=== PATIENT | female | born 1995 | race Caucasian/White ===

== ENCOUNTER 2018-10-16 15:50 | Outpatient (CLI) | payer OTHER | END 2018-10-16 16:44 | disposition home or self-care (01) | LOC: D.LDO 15:50 | PROVIDERS: ATTEND Obstetrics & Gynecology | DX: O10.919 Unspecified pre-existing hypertension complicating pregnancy, unspecified trimester (principal); Z3A.00 Weeks of gestation of pregnancy not specified ==

== ENCOUNTER 2018-12-05 06:05 | Inpatient (IN) | payer OTHER ==
[~2018-12-05] VITALS: Ht 170.2 cm; Wt 100.2 kg
[2018-12-05] MEDS ORDERED: PRENAVITE1 TAB PO (07:49)
[2018-12-05 07:54] LABS: HEMATOCRIT 32.7 % (36.0-48.0); HEMOGLOBIN 10.7 g/dL (12-16); MCH 26.5 pg (26.0-34.0); MCHC 32.7 g/dL (31.0-37.0); MCV 80.9 fL (80.0-100.0); MEAN PLATELET VOLUME 10.8 fL (7.4-10.4); RBC 4.04 10x6/uL (4.00-5.40); RDW 14.3 % (11.5-14.5); WBC 10.8 10x3/uL (4.8-10.8)
[2018-12-05 08:10] VITALS: BP 131/84; Ht 170.2 cm; Wt 100.2 kg
[2018-12-05 09:56] LABS: APPEARANCE HAZY (CLEAR); BILIRUBIN NEGATIVE (NEGATIVE); COLOR YELLOW (YELLOW); GLUCOSE NEGATIVE (NEGATIVE); KETONE NEGATIVE (NEGATIVE); NITRITE NEGATIVE (NEGATIVE); PROTEIN NEGATIVE (NEGATIVE); SPECIFIC GRAVITY 1.015 (1.005-1.020); UROBILINOGEN NORMAL (NORMAL)
[2018-12-05 09:57] LABS: BACTERIA FEW /hpf (NONE SEEN); EPITHELIAL CELLS 0-5 /hpf (0-5); RED CELLS - URINE OCC /hpf (0-5); WHITE CELLS - URINE 0-5 /hpf (0-5)
[2018-12-06 07:21] LABS: RAPID PLASMA REAGIN Non Reactive (Non Reactive)
--- NOTE | 2018-12-06 16:00 | NUR ---
REC'D PT BACK FROM RECOVERY POST VAGINAL LACERATION REPAIRS POST VAG DELIVERY. PT AA&O X 4. REPORTS PAIN 10/30. KENNEY RECOVERY NURSE ADMINISTERS DEMEROL AT THIS TIME FOR SHIVERES. SEE RECOVERY NOTES AND EMAR. PT TRANSFERS SELF FROM STRETCHER TO REGULAR BED. POST OP VITALS OBTAINED. SEE FLOWSHEET. BRADLEY CATH REMAINS IN PLACE W/APPROX 700ML NOTED IN BRADLEY BAG. DR LAMBERT O ROOM AT THIS TIME TO INFORM PT THAT SHE WILL HAVE A VAG PACK AND BRADLEY X 6 ADDITION HOURS TO CONTROL BLEEDING. PT'S HAS A PIV TO LEFT WRIST AREA W/NS W/20 UNITS PITOCIN INFUSING AT SLOW RATE VIA GRAVITY. APPROX 200ML REMAINING IN BAG. LINE PLACED ON PUMP TO INFUSE AT 100ML/HR FOR REMAINDER OF BAG. A KATHARINA RN TO ROOM FOR FUNDUS ASSESSMENT AND TO CHANGE PATIENTS GOWN. SEE A KATHARINA RN NOTES. PT RESTING QUIETLY W/EYES CLOSED. RESP EVEN AND UNLABORED. BED LOW, SIDE RAILS UP X 2. CALL LIGHT, PHONE AND REMOTE AT BEDSIDE. PP TREAT BOX AND ICE WATER AT BEDSIDE.
[2018-12-06 16:08] VITALS: BP 123/72
--- NOTE | 2018-12-06 17:00 | NUR ---
PT RESTING WITH EYES CLOSED, RESP EVEN AND UNLABORED, 18/MIN. PT DENIES NAUSEA, SOB OR DIZZINESS. FUNDUS FIRM, U/1, SCANT RUBRA LOCHIA NOTED. PT HAS VAGINAL PACKING IN PLACE. BRADLEY CATH CONTINUES TO DRAIN DARK YELLOW URINE, 100 CC'S NOTED IN UROMETER. NEW PERIPADS PLACED. PT IS DROWSY, BUT AWAKENS WHEN SPOKEN TO. REQUESTS ICE WATER TO DRINK, SERVED. DENIES ALL OTHER NEEDS AT THIS TIME. DENIES NEEDING PAIN MEDICATION, RATING PAIN TO VAGINAL AREA 3/10, DESCRIBES BURNING SENSATION. FAMILY IN ROOM. SRUP X 2, CALL LIGHT AND PHONE WITHIN REACH.
--- NOTE | 2018-12-06 19:17 | NUR ---
INTO ROOM FOR BEDSIDE REPORT. IV INFUSION PUMP NOTED TO BE OFF. Bennie POSADAS RN REMOVED TUVING FROM PUMP AND UNCLAMPED TO INFUSE BUT IV NOT INFUSING. IV REMAINS OFF AT THIS TIME. VISITORS IN ROOM AT PRESENT. PT. STATES SHE HAS SLIGHT DISCOMFORT BUT DOES NOT FEEL THAT SHE NEEDS MEDICATION. BRADLEY PATENT AND DRAINAGE WITH LARGE AMT. IN DRAINAGE BAG.
[2018-12-06 19:51] VITALS: BP 122/65
--- NOTE | 2018-12-06 19:51 | NUR ---
PT. AWAKE AND ORIENTED. SKIN WARM AND DRY. PT. CONTINUES TO DECLINE PAIN MEDICATION. IV CONTINUES IN LT HAND BUT UNABLE TO INFUSE. SLIGHT LABIAL EDEMA NOTED ON RT. LABIA. BRADLEY PATENT AND DRAINING. FOB AT BEDSIDE. ATTEMPTING TO BREAST FEED BUT UNABLE TO GET INFANT TO LATCH. INFORMED PT. THAT THIS NURSE WOULD INFORM NBN NURSE THAT ASSISTANCE IS NEEDED.
--- NOTE | 2018-12-06 20:00 | NUR ---
2300CC EMPTIED FROM [place]. ICE WATER PROVIDED.
--- NOTE | 2018-12-06 20:10 | NUR ---
PT. INFORMED TO CALL FOR ASSISTANCE PRIOR TO AMBULATION TO THE BATHROOM. PT. STATES UNDERSTANDING. SIDE RAILS UP X 2 AND CALL LIGHT WITHIN REACH.
--- NOTE | 2018-12-06 21:50 | NUR ---
RECEIVED REPORT FROM CAROL LEON RN
--- NOTE | 2018-12-06 22:00 | NUR ---
BRADLEY CATH. DISCONTINUED. VAG. PACK REMOVED WITHOUT ANY LOCHIA NOTED IMMEDIATELY AFTERWARDS. ALECIA PADS PADS AND PANTIES APPLIED. IV DISCONTINUED WITH INTACT CATH. TIP NOTED.
[2018-12-07] VITALS: BP 127/61
--- NOTE | 2018-12-07 | NUR ---
PT AWAKE, VS OBTAINED, PT DENIES NEEDS OR PAIN, BLANKET PROVIDED TO FOB, BABY IN OPEN CRIB CART AT BEDSIDE
--- NOTE | 2018-12-07 01:00 | NUR ---
REPORT TO CAROL LEON RN
--- NOTE | 2018-12-07 02:10 | NUR ---
PT. AWAKE AT PRESENT. DENIES ANY PAIN AT THIS TIME. FOB ASLEEP ON SOFA. LOCHIA RUBRA SCANT TO MOD. INFANT IN OPEN CRIB At BEDSIDE ASLEEP.
--- NOTE | 2018-12-07 04:40 | NUR ---
INQUIRED IF PT. FELT SHE COULD VOID AT THIS TIME. PT. STATES SHE DOES NOT FEEL URGE BUT WOULD TRY. STATES CONCERN ABOUT BURNING WITH URINATION. DISCUSSED USING ALECIA BOTTLE WHILE VOIDING TO DILUTE URINE AND HELP ELIMINATE THE BURNING. UP TO BATHROOM WITHOUT ASSISTANCE NEEDED. WHILE WALKING PT. COMMENTS, "OH, THIS IS NOT BAD". VOIDED WITH USE OF ALECIA BOTTLE DISCUSSED. LOCHIA RUBRA SCANT NOTED. ALECIA PADS AND PANTIES CHANGED. PT. DESIRES TO PUT ON OWN CLOTHES AND SAME DONE. FOB AWAKE. INFANT TO NBN PER NBN NURSE FOR WEIGHT AND HEARING TEST.
--- NOTE | 2018-12-07 05:08 | NUR ---
DERMOPLAST GIVEN TO PT. WITH INSTRUCTIONS ON USE.
--- NOTE | 2018-12-07 05:15 | NUR ---
PT AND FOB ASLEEP AT PRESENT. INFANT REMAINS IN NBN.
--- NOTE | 2018-12-07 06:20 | NUR ---
DR. PIÑA ON UNIT. MAKING ROUNDS.
--- NOTE | 2018-12-07 06:40 | OP ---
PATIENT NAME: ZEB HILLMAN MEDICAL RECORD: [id number] :96 [facility]ATION:[id number] ADMISSION DATE:12/05/18 SURGEON: HUNTER PIÑA MD DATE OF OPERATION: 12/06/2018 PREPERATIVE DIAGNOSES: 1. , delivered at 39 weeks' gestation. 2. Nonreassuring tracing. POSTOPERATIVE DIAGNOSES: 1. Mother delivered at 39 weeks. 2. Nonreassuring tracing. 3. Third-degree vaginal laceration. PROCEDURES: 1. Vacuum-assisted vaginal delivery. 2. Repair of third-degree laceration in the operating room. ATTENDING: Hunter Piña MD EXERCISE SPECIALIST: Romaine Eaton. ANESTHETIC: No anesthetic for vaginal delivery. General anesthesia for vaginal repair. FINDINGS: Viable male infant, vertex presentation, Apgars are 9 and 9. Weight is 3890 grams. Laceration extending into the perineal body and sphincter while sparing the rectum. There is also second-degree lacerations of the vaginal floor and vaginal sidewalls. SPECIMENS REMOVED: Placenta. SPECIMEN DISPOSITION: Discarded. ESTIMATED BLOOD LOSS: 300 cc for the delivery and 300 cc for the repair. FLUIDS: 650 cc of lactated Ringer's. URINE OUTPUT: 100 cc. COMPLICATIONS: None. DRAINS: Fields to gravity. INDICATION: The patient is a 23-year-old G1, para 0, who underwent induction of labor at 39 weeks. The patient had not had deep variables and bradycardic event at that delivery and vacuum assist was utilized. A third-degree laceration was unable to be repaired in the room due to the patient's inability to stay properly positioned and she is consented for exam under anesthesia and repair of vaginal laceration. DESCRIPTION OF PROCEDURE: After vacuum was applied and was delivered over a single expulsive efforts, the perineal body was clean and the anal sphincter reapproximated with 3-0 Vicryl. During the process of repair of the vaginal floor due to visualization and the patient's inability to remain OPERATIVE REPORT [id number] ZEB HILLMAN immobile it is felt prudent to do a complete repair in the operating room under anesthetic. The patient is consented for exam under anesthesia and repair. After being taken to the operating room and legs positioned, the perineum was prepped. Visualization of the laceration shows it to extend into the vaginal floor. The anal sphincter was inspected and found to be well approximated. Using a 0-chromic stitch, the vaginal floor was repaired in a running locked fashion to the introitus. A crown stitch is now performed and the stitch brought down to the apex of the perineal laceration. A subcuticular stitch was brought up and then secured in the vaginal floor. A second laceration to the right of midline is identified and this was closed with [id number] 0 chromic stitch. There is a 4 cm laceration of the right vaginal sidewall. This was closed using a 3-0 chromic. After this running stitch was applied, inspection reveals some separation of the anal verge and this was reapproximated with 4-0 chromic with interrupted stitches. Vaginal packing is now placed. Fields catheter remains in place and the patient is taken down from the stirrups and went to the recovery room in stable condition. TRANSINT:[id number] Voice Confirmation ID: [id number] DOCUMENT ID: [id number] HUNTER PIÑA MD at 0640 CC: [id number] DICTATION DATE: 12/06/18 1553 BREWERY WORKER: 12/06/18 1950 ADM IN [facility] [address] [id number]
[2018-12-07 07:30] VITALS: BP 121/65
--- NOTE | 2018-12-07 07:30 | NUR ---
RECEIVED PT LYING SUPINE IN BED. WAKES UPON ENTERING ROOM. VSS. HRRR WITHOUT AUDIBLE MURMUR. BBS CLEAR. BS X 4. ABDOMEN SOFT/NON-DISTENDED. FUNDUS FIRM AT U/2. RUBRA LOCHIA SMALL AMT. NO CLOTS OR HEAVY BLEEDING PER PT STATES. PERINEUM WITH SLIGHT EDEMA. SKIN PINK TO AREA. NEG HOMANS' SIGN. PPP. NO EDEMA NOTED TO BLE. PT DENIES NEEDS OR C/O. SR UP X 2. CALL LIGHT IN REACH.
[2018-12-07 07:39] LABS: BASOPHILS 0.2 % (0-2); EOSINOPHILS 0.1 % (0-7); IMMATURE GRANULOCYTES 0.7 % (0-5); LYMPHOCYTES 12.6 % (15-50); MCHC 31.9 g/dL (31.0-37.0); MCV 81.6 fL (80.0-100.0); MEAN PLATELET VOLUME 10.3 fL (7.4-10.4); MONOCYTES 8.5 % (2-11); NEUTROPHILS 77.9 % (40-80); PLATELET COUNT 295 10x3/uL (130-400); RDW 14.4 % (11.5-14.5)
[2018-12-07 07:40] LABS: HEMATOCRIT 25.7 % (36.0-48.0); HEMOGLOBIN 8.2 g/dL (12-16); RBC 3.15 10x6/uL (4.00-5.40); WBC 15.7 10x3/uL (4.8-10.8)
--- NOTE | 2018-12-07 08:32 | NUR ---
PT SITTING UP IN BED. HOLDS WITH MUCH WARMTH SHOWN. TORADOL 10 MG GIVEN PO ORDERED. PT INSTRUCTED ON MED. VERBALIZES UNDERSTANDING.
--- NOTE | 2018-12-07 09:00 | NUR ---
PT SITTING UP IN BED. CARING FOR INFANT. DENIES C/O OR NEEDS.
[2018-12-07] MEDS ORDERED: PERCOCET 7.5/321 TAB PO (09:24)
[2018-12-07] MEDS ORDERED: CLEOCIN HCL300 MG PO (09:24)
[2018-12-07] MEDS ORDERED: TANDEM DUAL AC106 MG PO (09:24)
[2018-12-07] MEDS ORDERED: TYLENOL #4 W/CO1 TAB PO (09:27)
--- NOTE | 2018-12-07 10:35 | NUR ---
PT AMBULATORY IN ROOM. BACK TO BED. DENIES C/O PAIN OR NEEDS. SO IN ROOM WITH PT.
--- NOTE | 2018-12-07 11:30 | NUR ---
PT SITTING UP IN BED. HOLDS WITH MUCH WARMTH SHOWN. DENIES PAIN OR NEEDS. FAMILY IN ROOM WITH PT.
--- NOTE | 2018-12-07 12:40 | NUR ---
PT SITTING UPRIGHT IN BED. CONSUMING REG DIET. TOLERATING WELL. PT PROVIDED SITZ BATH AND INSTRUCTED TO NOTIFY NURSE WHEN PT READY FOR INSTRUCTION. PT VERBALIZES UNDERSTANDING.
--- NOTE | 2018-12-07 13:30 | NUR ---
PT SITTING UPRIGHT IN BED. VISITS WITH VISITORS IN ROOM. DENIES C/O.
--- NOTE | 2018-12-07 14:43 | NUR ---
PT SITTING UP IN BED. VISITS WITH FAMILY. DENIES PAIN OR NEEDS.
[2018-12-07 17:08] VITALS: BP 144/88
--- NOTE | 2018-12-07 17:08 | NUR ---
PT SITTING UP IN CHAIR. VISITS WITH FAMILY WHILE FOB FEEDS . VSS. PT DENIES PAIN OR NEEDS.
--- NOTE | 2018-12-07 18:34 | NUR ---
PT IN BATHROOM AT THIS TIME. DENIES C/O OR NEEDS.
--- NOTE | 2018-12-07 19:07 | NUR ---
PT. LYING ON BACK WITH HOB AT 45 DEGREES. LARGE NUMBER OF VISITORS IN ROOM. BEING HELD BY VISITORS. PT. DENIES ANY NEEDS AND IS CHEERFUL. INFORMED WOULD RETURN AT LATER TIME FOR FULL ASSESSMENT. PT. AGREEABLE.
--- NOTE | 2018-12-07 20:11 | NUR ---
PT. WALKING ABOUT IN ROOM AND FOB FEEDING INFANT. PT. DENIES ANY PAIN . TORADOL GIVEN ORDERED. DISCUSSED SITZ BATH BUT PT. REPORTS THAT SHE DOES NOT HAVE PAIN AND WILL CALL THIS NURSE IF SHE WANTS SITZ BATH.
[2018-12-07 20:15] VITALS: BP 147/87
--- NOTE | 2018-12-07 20:15 | NUR ---
SITTING ON SIDE OF BED FOR ASSESSMENT. BREATH SOUNDS CLEAR AND BOWEL SOUNDS AUDIBLE. VITAL SIGNS OBTAINED. DENIES ANY PAIN IN LOWER EXTREMITIES.
--- NOTE | 2018-12-07 20:20 | NUR ---
DISCUSSED WITH PT. WHEN NEXT TORADOL IS DUE. AGREEMENT MADE WITH PT. THAT IF SHE IS ASLEEP WHEN MEDICATION DUE WILL NOT AWAKEN BUT WILL ADMINISTER WHEN SHE IS AWAKE. PT. DESIRES TO SLEEP INBETWEEN FEEDS OF INFANT.
--- NOTE | 2018-12-07 21:40 | NUR ---
PT. LYING IN BED ON BACK WITH HOB AT 30 DEGREES HOLDING AND STROKING BABY'S FACE. PT. CHEERFUL. NOURISHMENT CHOICES RELAYED TO PT. STATES THAT FOB WAS OUT AT THIS TIME TO GET FOOD TO BRING BACK. DENIES ANY PAIN OR ANY NEEDS. STATES BERNADETTE HAD A TOTAL OF 10 DAYS OFF WHEN HE ARRIVED FOR DELIVERY SO WILL HAVE A FEW DAYS TO SPEND WITH HER AT HOME PRIOR TO HAVING TO RETURN TO WHERE HE WAS STATIONED IN THE SERVICE.
--- NOTE | 2018-12-07 23:40 | NUR ---
PT. SITTING ON SOFA HOLDING . CHEERFUL AND DENIES ANY NEEDS. FOB AND ANOTHER MALE ON SOFA.
--- NOTE | 2018-12-08 01:37 | NUR ---
WALKING ABOUT IN ROOM TENDING TO WHICH IS IN OPEN CRIB. TORADOL GIVEN ORDERED. PAIN IS 0 OF 10. FOB ASSISTING PT. WITH INFANT. NBN NURSE IN ROOM TALKING WITH PT.
--- NOTE | 2018-12-08 03:40 | NUR ---
PT. AND FOB SITTING IN CHAIRS AND FOB FEEDING WHILE PT. WATCHING. ICE WATER PROVIDED TO BOTH. PT. DENIES ANY PAIN OR ANY NEEDS.
--- NOTE | 2018-12-08 05:15 | NUR ---
PT RESTING COMFORTABLY AT THIS TIME WITHOUT COMPLAINTS. NO NEEDS VOICED. Diana WILLINGHAM RN
--- NOTE | 2018-12-08 09:45 | NUR ---
DR JOHNSON VISITS WITH PT. ORDER RECEIVED TO DC HOME WITH .
--- NOTE | 2018-12-08 10:30 | NUR ---
PT SITTING UP IN BED. VISITS WITH FAMILY. DENIES C/O OR NEEDS.
--- NOTE | 2018-12-08 12:15 | NUR ---
PT INSTRUCTED ON USE OF SITZ BATH. PT VERBALIZES UNDERSTANDING OF USE. STATES WILL SHOWER AT THIS TIME.
--- NOTE | 2018-12-08 13:05 | NUR ---
DISCHARGE INSTRUCTIONS GIVEN TO PT. PT VERBALIZES UNDERSTANDING OF ALL INSTRUCTIONS. COPIES GIVEN TO PT. PT GIVEN RX FOR TYLENOL #4 GIVEN TO PT. PT PREPARES FOR DISCHARGE.
--- NOTE | 2018-12-08 13:35 | NUR ---
PT READY FOR DISCHARGE. DISCHARGED IN STABLE CONDITION VIA WHEELCHAIR PER Thomas SHEN RN TO PRIVATE VEHICLE. INFANT SECURED IN CARSEAT AND CARRIED OUT BY [facility].
== END 2018-12-08 13:35 | disposition home or self-care (01) | DRG 768 ==
LOC: D.LD 06:05
PROVIDERS: ADMIT Obstetrics & Gynecology; ATTEND Obstetrics & Gynecology
PROC: 3E0P7VZ Introduction of Hormone into Female Reproductive, Via Natural or Artificial Opening (ICD-10-PCS; 2018-12-05)
PROC: 3E033VJ Introduction of Other Hormone into Peripheral Vein, Percutaneous Approach (ICD-10-PCS; 2018-12-05)
PROC: 10D07Z6 Extraction of Products of Conception, Vacuum, Via Natural or Artificial Opening (ICD-10-PCS; 2018-12-06)
PROC: 10907ZC Drainage of Amniotic Fluid, Therapeutic from Products of Conception, Via Natural or Artificial Opening (ICD-10-PCS; 2018-12-06)
PROC: 0DQR0ZZ Repair Anal Sphincter, Open Approach (ICD-10-PCS; principal; 2018-12-06 15:00)
DX: O76 Abnormality in fetal heart rate and rhythm complicating labor and delivery (principal); Z37.0 Single live birth; O71.4 Obstetric high vaginal laceration alone; Z3A.39 39 weeks gestation of pregnancy